=== PATIENT | female | born 2000 | race Caucasian/White ===

== ENCOUNTER 2019-10-21 23:15 | Emergency (ER) | payer OTHER ==
[~2019-10-21] VITALS: Ht 154.9 cm; Wt 40.4 kg
[2019-10-22] MEDS ORDERED: DICLOFENAC SODI75 MG PO (00:55)
== END 2019-10-22 01:03 | disposition home or self-care (01) ==
LOC: ER 23:15
DX: M94.0 Chondrocostal junction syndrome [Tietze] (principal)

== ENCOUNTER 2021-11-05 12:26 | Emergency (ER) | payer OTHER ==
[~2021-11-05] VITALS: Ht 152.4 cm; Wt 43.1 kg
[~2021-11-05 12:26] MED LIST: DICLOFENAC SODI75 MG PO
== END 2021-11-05 15:59 | disposition home or self-care (01) ==
LOC: ER 12:26
DX: S30.0XXA Contusion of lower back and pelvis, initial encounter (principal); W01.0XXA Fall on same level from slipping, tripping and stumbling without subsequent striking against object, initial encounter; Y92.69 Other specified industrial and construction area as the place of occurrence of the external cause